=== PATIENT | male | born 1990 | race African-American/Black ===

== ENCOUNTER 2021-04-02 12:11 | Emergency (ER) | payer OTHER ==
[~2021-04-02] VITALS: Ht 190.5 cm; Wt 109.1 kg
[2021-04-02 12:23] VITALS: BP 114/72
[2021-04-02] MEDS ORDERED: traMADol 50 MG TABLET PO ONE (12:30)
--- NOTE | 2021-04-02 12:33 | PHYS DOC ---
Past History Past Surgical History: Other Additional Past Surgical Histo: L shoulder (FELICIANO MCCLURE) General Adult EDM: Chief Complaint: LOWER EXT PAIN HPI: HPI: Patient is a 30 year old male who presents with right ankle pain that began this morning. Patient states he was taking care of his dogs and stumbled on the stairs and twisted his ankle. He denies a fall, head trauma, headache, neck pain or any other trauma/injury. Patient was able to walk at the time of injury, and continues to be able to ambulate with pain. He states the pain has gotten worse since onset of injury, without symptom relief using ibuprofen, icy hot and ice packs. Patient has no other complaints at this time. (FELICIANO MCCLURE) Review of Systems: Review of Systems: ROS negative except as mentioned in HPI. (FELICIANO MCCLURE) Physical Exam: PE: Constitutional: Well developed, well nourished, no acute distress, non-toxic appearance. Cardiovascular:Heart rate regular rhythm, no murmur. Lungs & Thorax: Bilateral breath sounds clear to auscultation. Skin: Warm, dry, no erythema, no rash. Extremities: Right ankle with minimal lateral malleolar swelling with no bony point tenderness. Neurovascular intact in extremities x4. Extremities otherwise no tenderness, no cyanosis, no clubbing, ROM intact, no edema. Neurologic: Alert and oriented x3, normal motor function, normal sensory function, no focal deficits noted. (FELICIANO MCCLURE) Current Patient Data: Vital Signs: Vital Signs Date Time Temp Pulse Resp B/P (MAP) Pulse Ox O2 Delivery O2 Flow Rate FiO2 04/02/21 12:23 97.1 74 18 114/72 (86) 98 Room Air (FELICIANO MCCLURE) Radiology/Procedures: Radiology/Procedures: PROCEDURE: ANKLE RIGHT 3V Site ID: [id number] EXAMINATION: XR EXAM OF ANKLE_RIGHT 3VIEWS. HISTORY: 30 years Male Reason: twisted on stairs COMPARISON: None. FINDINGS: No fracture, dislocation or radiopaque foreign body. The joint spaces and articular surfaces appear unremarkable. IMPRESSION: Unremarkable exam. Electronically signed by: Stephen Dennis MD (04/02/2021 12:42 PM) [id number] (FELICIANO MCCLURE) Heart Score: C/O Chest Pain: No (FELICIANO MCCLURE) Course & Med Decision Making: Course & Med Decision Making Pertinent Labs and Imaging studies reviewed. (See chart for details) Likelihood of fractured ankle bones is not high, as patient was able to ambulate both after injury and here in the department. Additionally, he has no bony tenderness at any point according to [place] ankle rules. X-rays were ordered however for patient reassurance. As the patient last took ibuprofen an hour and a half ago, further NSAIDs for pain control are contraindicated. Patient will be placed in a stirrup splint and discharged home with 800 mg ibuprofen every 6 hours. Orthopedic follow-up was provided should his pain not improve. Patient understands and is agreeable to discharge plan. (FELICIANO MCCLURE) Dragon Disclaimer: Dragon Disclaimer: This electronic medical record was generated, in whole or in part, using a voice recognition dictation system. (FELICIANO MCCLURE) Splinting Patient informed of findings. Stirrup splint and Yaya bandage applied by nurse. The splint is checked by myself, with appropriate stabilization of the injury. Distal capillary refill less than 2 seconds and distal neurologic function intact. (FELICIANO MCCLURE) Attending Co-Sign The patient was seen and interviewed as well as examined at the bedside. The chart was reviewed. The case was discussed. Agree with the plan of care. (LINO GABRIEL DO) Departure Departure: Impression: Primary Impression: Mild sprain of right ankle Qualified Codes: S93.401A - Sprain of unspecified ligament of right ankle, initial encounter Disposition: HOME / SELF CARE / HOMELESS Condition: STABLE Referrals: PATITO MCKENNA DO (PCP) Patient Instructions: RICE - Routine Care for Injuries, [id number] Additional Instructions: Your x-rays today showed that there are no fractures to your right ankle. Additionally, minimal soft tissue swelling is noted, which is reassuring that the sprain is mild. Use RICE therapy for joint injury, as described in your discharge instructions. For pain and inflammation, you may take 800mg ibuprofen every 6 hours as needed. Please return to the department if your pain worsens, or if you develop signs of compartment syndrome (pale/cool skin, loss of pulses, numbness and tingling). FELICIANO MCCLURE Apr 02, 2021 12:33 LINO GABRIEL DO Apr 02, 2021 17:08
--- NOTE | 2021-04-02 12:45 | RAD ---
Site ID: [id number] EXAMINATION: XR EXAM OF ANKLE_RIGHT 3VIEWS. HISTORY: 30 years Male Reason: twisted on stairs COMPARISON: None. FINDINGS: No fracture, dislocation or radiopaque foreign body. The joint spaces and articular surfaces appea r unremarkable. IMPRESSION: Unremarkable exam. Electronically signed by: Stephen Dennis MD (04/02/2021 12:42 PM) [id number]
== END 2021-04-02 13:37 | disposition home or self-care (01) ==
LOC: ER 12:11
DX: S93.401A Sprain of unspecified ligament of right ankle, initial encounter (principal); X50.9XXA Other and unspecified overexertion or strenuous movements or postures, initial encounter; Y93.89 Activity, other specified; Y92.89 Other specified places as the place of occurrence of the external cause; Y99.8 Other external cause status
CPT/HCPCS: 29515; 73610; 99283